=== PATIENT | male | born 1995 ===

== ENCOUNTER 2020-05-11 07:12 | Emergency (ER) | payer OTHER, MEDICAID ==
[2020-05-11] MEDS ORDERED: Boostrix 0.5 ML (Tdap) VIAL ONE (08:59)
== END 2020-05-11 09:30 | disposition home or self-care (01) ==
LOC: ERS 07:12
DX: S51.012A Laceration without foreign body of left elbow, initial encounter (principal); M25.522 Pain in left elbow; Z87.891 Personal history of nicotine dependence; V03.99XA Pedestrian with other conveyance injured in collision with car, pick-up truck or van, unspecified whether traffic or nontraffic accident, initial encounter; Y93.01 Activity, walking, marching and hiking
CPT/HCPCS: 12001; 90471; 90715

== ENCOUNTER 2020-08-04 23:51 | Emergency (ER) | payer OTHER, MEDICAID | END 2020-08-05 02:19 | disposition home or self-care (01) | LOC: ERS 23:51 | DX: S93.401A Sprain of unspecified ligament of right ankle, initial encounter (principal); Z87.891 Personal history of nicotine dependence; X50.1XXA Overexertion from prolonged static or awkward postures, initial encounter; Y93.51 Activity, roller skating (inline) and skateboarding ==